=== PATIENT | female | born 1930 | race Caucasian/White ===

== ENCOUNTER → 2016-11-10 | Outpatient (CLI) | payer MEDICARE, OTHER ==
--- NOTE | 2016-11-10 13:19 | RADRPT ---
PROCEDURE: Left knee radiographs. CLINICAL INDICATION: Left knee pain. TECHNIQUE: Four views. Weight bearing. Frontal, lateral, oblique, and patellar view. COMPARISON: No prior studies are available for comparison. FINDINGS: There is no fracture or dislocation. Vascular calcifications are present consistent with atherosclerosis. There is also chondrocalcinosi s, likely degenerative in nature. There are degenerative changes with osteophytes arising from all 3 joint compartment margins. There is mild lateral joint compartment narrowing. There is no lytic or blastic lesion. There is no radiopaque foreign body. IMPRESSION: 1. 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 2. Atherosclerosis. 3. Chondrocalcinosis, likely due to degenerative change. 4. No acute abnormality. RPTAT: QQ .Keenan Mason MD, Date Time Electronically viewed and signed by .Keenan Mason MD, on 11/10/2016 13:18 .R/
== END | disposition home or self-care (01) ==
LOC: HKI 08:36
PROVIDERS: ATTEND Orthopaedic Surgery
DX: M25.562 Pain in left knee (principal); S80.02XA Contusion of left knee, initial encounter; M17.12 Unilateral primary osteoarthritis, left knee; S83.242A Other tear of medial meniscus, current injury, left knee, initial encounter
CPT/HCPCS: 20610; 73564; G0463; J1030

== ENCOUNTER → 2017-03-16 | Outpatient (CLI) | payer MEDICARE, OTHER ==
--- NOTE | 2017-03-16 16:56 | RADRPT ---
PROCEDURE: XR Pelvis and Hips. CLINICAL INDICATION: Pelvic pain. Bilateral hip pain. TECHNIQUE: Five views. Frontal pelvis. Frontal and lateral right hip. Frontal and lateral left hip. COMPARISON: 03/19/2016. FINDINGS: There are bilateral total hip arthroplasties. These appear satisfactory with no fracture, dislocati on, or loosening. The soft tissues are unremarkable. There are degenerative changes of the lower lumbar spine. There is no lytic lesion. IMPRESSION: 1. Satisfactory postoperative appearance of both hips. 2. No change from 03/19/2016. RPTAT: QQ .Keenan Mason MD, MD Date Time Electronically viewed and signed by .Keenan Mason MD, MD on 03/16/2017 16:56 .R/
== END | disposition home or self-care (01) ==
LOC: HKI 08:34
PROVIDERS: ATTEND Orthopaedic Surgery
DX: Z47.89 Encounter for other orthopedic aftercare (principal); Z96.643 Presence of artificial hip joint, bilateral
CPT/HCPCS: 73523; G0463